=== PATIENT | female | born 1940 | race American Indian/Alaskan Native ===

== ENCOUNTER → 2016-10-23 16:55 | Outpatient (CLI) | payer MEDICARE ==
[2015-09-21 13:57] VITALS: BMI 20.6
[~2016-10-23 16:55] MED LIST: ASPIRIN325 MG PO; CALCIUM 600+D T1 TA1 PO; FERROUS SULFAT325 MG PO; HCTZ25 MG PO; HYDROCODON-ACE1 EAC7 PO; PRILOSEC20 MG PO; SYNTHROID112 MCG PO; ZOFRAN8 MG PO; ZOLOFT100 MG PO
== END | disposition home or self-care (01) ==
LOC: D.MAMMO 13:45
DX: Z12.31 Encounter for screening mammogram for malignant neoplasm of breast (principal)

== ENCOUNTER 2017-09-25 07:47 | Outpatient (CLI) | payer MEDICARE ==
[~2017-09-25] VITALS: Ht 165.1 cm; Wt 52.7 kg
[2017-09-25 08:25] LABS: BASOPHILS 0.5 % (0-2); EOSINOPHILS 0.5 % (0-7); HEMATOCRIT 37.2 % (36.0-48.0); IMMATURE GRANULOCYTES 0.9 % (0-5); LYMPHOCYTES 21.1 % (15-50); MCH 31.5 pg (26.0-34.0); MCHC 32.3 g/dL (31.0-37.0); MCV 97.6 fL (80.0-100.0); MEAN PLATELET VOLUME 8.8 fL (7.4-10.4); MONOCYTES 7.8 % (2-11); NEUTROPHILS 69.2 % (40-80); RBC 3.81 10x6/uL (4.00-5.40); RDW 14.2 % (11.5-14.5); WBC 8.1 10x3/uL (4.8-10.8)
[2017-09-25 08:35] LABS: PLATELET COUNT 329 10x3/uL (130-400)
[2017-09-25 08:39] LABS: ANION GAP 8.7 mmol/L (8-16); CALCIUM 8.7 mg/dL (8.5-10.1); CARBON DIOXIDE 30.9 mmol/L (21.0-32.0); CREATININE - SERUM 0.9 mg/dL (0.6-1.3); POTASSIUM - SERUM 3.6 mmol/L (3.5-5.1)
[2017-09-25 08:40] VITALS: BP 141/41; Ht 165.1 cm; Wt 52.7 kg
[2017-09-25 08:47] LABS: APTT 35.9 SECONDS (22.8-39.4); INR 1.11 (0.85-1.17); PROTIME 13.9 SECONDS (11.6-15.0)
== END 2017-09-25 16:05 | disposition home or self-care (01) ==
LOC: D.OPS 07:47 → D.SP 10:00 → D.OPS 16:05
PROVIDERS: Specialist
DX: C34.11 Malignant neoplasm of upper lobe, right bronchus or lung (principal); C34.31 Malignant neoplasm of lower lobe, right bronchus or lung; Z01.812 Encounter for preprocedural laboratory examination

== ENCOUNTER → 2019-05-21 07:18 | Outpatient (CLI) | payer MEDICARE ==
[2017-09-25 08:40] VITALS: BMI 19.3
[~2019-05-21 07:18] MED LIST changes: +ALENDRONATE SOD40 MG PO; +ANORO ELLIPTA1 EACH INH; +ATIVAN0.5 MG PO; +BREO ELLIPTA 21 EACH; +CARAFATE1 G PO; +CYANOCOBAL1000 MCG/4 IM; +EFFEXOR75 MG PO; +FLUTICASONE PRO16 GM NASAL; +FUROSEMIDE20 MG PO; +OMEPRAZOLE40 MG PO; +POTASSIUM CHLORIDE PO; +SINGULAIR10 MG PO; +TRAZODONE HCL150 MG PO; +VENTOLIN HFA INH; +VITAMIN D250000 UNIT PO; +XARELTO10 MG PO
== END | disposition home or self-care (01) ==
LOC: D.RT 07:18 → D.LAB 05-29 13:30 → D.RT 05-29 14:00
PROVIDERS: ATTEND Internal Medicine Pulmonary Disease
DX: J44.9 Chronic obstructive pulmonary disease, unspecified (principal)

== ENCOUNTER 2019-05-25 12:22 | Day surgery (SDC) | payer MEDICARE ==
[~2019-05-25] VITALS: Ht 165.1 cm; Wt 50.0 kg
[~2019-05-25 12:22] MED LIST changes: -ALENDRONATE SOD40 MG PO; -ANORO ELLIPTA1 EACH INH; -ATIVAN0.5 MG PO; -BREO ELLIPTA 21 EACH; -CARAFATE1 G PO; -CYANOCOBAL1000 MCG/4 IM; -EFFEXOR75 MG PO; -FLUTICASONE PRO16 GM NASAL; -FUROSEMIDE20 MG PO; -OMEPRAZOLE40 MG PO; -POTASSIUM CHLORIDE PO; -SINGULAIR10 MG PO; -TRAZODONE HCL150 MG PO; -VENTOLIN HFA INH; -VITAMIN D250000 UNIT PO; -XARELTO10 MG PO
[2019-05-25 12:43] LABS: HEMATOCRIT 40.3 % (36.0-48.0); HEMOGLOBIN 13.4 g/dL (12-16); MCHC 33.3 g/dL (31.0-37.0); MCV 87.2 fL (80.0-100.0); MEAN PLATELET VOLUME 8.8 fL (7.4-10.4); RBC 4.62 10x6/uL (4.00-5.40); RDW 15.3 % (11.5-14.5); WBC 6.9 10x3/uL (4.8-10.8)
[2019-05-25 13:10] LABS: INR 1.1 (0.85-1.17); PROTIME 13.7 SECONDS (11.6-15.0)
[2019-05-25 13:18] LABS: ALBUMIN 3.2 g/dL (3.4-5.0); ANION GAP 9.8 mmol/L (8-16); BILIRUBIN - TOTAL 0.77 mg/dL (0.2-1.3); CALCIUM 8.8 mg/dL (8.5-10.1); CARBON DIOXIDE 30.6 mmol/L (21.0-32.0); CREATININE - SERUM 1.1 mg/dL (0.6-1.3); POTASSIUM - SERUM 4.4 mmol/L (3.5-5.1); PROTEIN - SERUM 7.6 g/dL (6.4-8.2)
[2019-05-25] MEDS ORDERED: BREO ELLIPTA 21 EACH (13:35)
[2019-05-25] MEDS ORDERED: EFFEXOR75 MG PO (13:36)
[2019-05-25] MEDS ORDERED: FLUTICASONE PRO16 GM NASAL (13:36)
[2019-05-25] MEDS ORDERED: POTASSIUM CHLORIDE PO (13:37)
[2019-05-25] MEDS ORDERED: FUROSEMIDE20 MG PO (13:37)
[2019-05-25] MEDS ORDERED: XARELTO10 MG PO (13:37)
[2019-05-25] MEDS ORDERED: ANORO ELLIPTA1 EACH INH (13:38)
[2019-05-25] MEDS ORDERED: SINGULAIR10 MG PO (13:38)
[2019-05-25] MEDS ORDERED: ALENDRONATE SOD40 MG PO (13:39)
[2019-05-25] MEDS ORDERED: CYANOCOBAL1000 MCG/4 IM (13:40)
[2019-05-25] MEDS ORDERED: CARAFATE1 G PO (13:40)
[2019-05-25] MEDS ORDERED: ATIVAN0.5 MG PO (13:40)
[2019-05-25] MEDS ORDERED: TRAZODONE HCL150 MG PO (13:41)
[2019-05-25] MEDS ORDERED: VENTOLIN HFA INH (13:42)
[2019-05-25] MEDS ORDERED: VITAMIN D250000 UNIT PO (13:42)
[2019-05-25] MEDS ORDERED: OMEPRAZOLE40 MG PO (13:46)
[2019-05-25 13:57] VITALS: Ht 165.1 cm; Wt 50.0 kg
--- NOTE | 2019-05-25 16:02 | NUR ---
18CC CONTRAST USED, 1.7 MINUTES FLURO TIME
--- NOTE | 2019-05-25 17:03 | NUR ---
16[address] ICE [address] SERVED[address] DR. KHAN HAS ROUNDED WITH FAMILY.
--- NOTE | 2019-05-28 07:40 | OP ---
PATIENT NAME: GRIFFIN DUEÑAS MEDICAL RECORD: [id number] :44 LOCATION:[facility] ADMISSION DATE: SURGEON: CHERRY KHAN DO DATE OF OPERATION: 05/25/2019 PROCEDURE: EGD with biopsies and ERCP with calculus removal. INDICATIONS FOR PROCEDURE: Dueñas's esophagus and abnormal imaging of the biliary system. SCOPE: Olympus video gastroscope and side-viewing duodenoscope. MEDICATIONS: The patient was under general sedation and intubation for both procedures. COMPLICATIONS: None immediate. FINDINGS: Informed consent was given. The patient was sedated and intubated. She was placed in a semi-prone position. The EGD was performed first. The endoscope was advanced under direct visualization through the mouth to the second portion of the duodenum with ease. The entire esophagus appeared normal down to the GE junction. At the GE junction, there was a possibility of Dueñas's esophagus. The patient has apparently had biopsies in the past which have confirmed Dueñas's without dysplasia. There were no obvious dysplastic changes by visualization with white light or narrow band imaging. Random biopsies were taken in quadrant fashion around the squamocolumnar junction. The endoscope was advanced beyond GE junction into the stomach and retroflexed to view the cardia, which appeared normal. Throughout the entire stomach, there was some erythema and granularity consistent with possible gastritis. The endoscope was advanced beyond the pylorus into the duodenum, which appeared normal down to the second portion. The endoscope was then withdrawn from the patient. The side-viewing duodenoscope was then used to reach the second portion of the duodenum where the ampulla was visualized. Initial appearances showed a widely patent pancreatic duct. Deep biliary cannulation was achieved with ease. A cholangiogram was performed, which showed some proximal dilation with possible calculi in the mid common bile duct. There were no obvious strictures and the duct appeared smooth. A small sphincterotomy was made to approximately 10 mm. A 10-mm sweeping balloon was then used to make multiple sweeps through the duct with removal of multiple calculi. Once the duct was confirmed to be clear, no further maneuvers were made. The guidewire and catheter was removed from the patient. The endoscope was removed from the patient. The patient tolerated the procedure well and there were no immediate complications. 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 2. Gastritis. 3. Multiple calculi located in the common bile duct, status post removal with a balloon sweep and sphincterotomy. PLAN AND RECOMMENDATIONS: 1. Discharge home when recovery parameters are met. 2. Follow up biopsy specimen results. 3. Continue current diet. 4. Continue current medications. OPERATIVE REPORT [id number] GRIFFIN DUEÑAS 5. A referral will be made to [facility] for consideration of endoscopic ultrasound to evaluate the pancreatic duct and bile duct further as well as the vague pancreatic findings on recent CT and MRI imaging. The bile duct dilation could be explained by the calculi which were removed on today's examination. Regarding the possible side branch cystic duct, this could be a pancreatic neoplasm. Endoscopic ultrasound would be the best modality for further evaluation of this as well as the pancreatic parenchyma to rule out a pancreatic adenocarcinoma. 6. Follow up with Dr. Ken as scheduled. TRANSINT:[id number] Voice Confirmation ID: [id number] DOCUMENT ID: [id number] CHERRY KHAN DO at 0740 CC: [id number] DICTATION DATE: 05/25/19 1615 GENERATOR TECHNICIAN: 05/25/19 2110 [facility] [place] 05/25/19 [facility] [address] [place] [address]
== END 2019-05-25 18:45 | disposition home or self-care (01) ==
LOC: D.OPS 12:22
PROVIDERS: Anesthesiology; ATTEND Internal Medicine Gastroenterology
DX: K22.70 Barrett's esophagus without dysplasia (principal); K29.70 Gastritis, unspecified, without bleeding; K80.50 Calculus of bile duct without cholangitis or cholecystitis without obstruction; Z01.812 Encounter for preprocedural laboratory examination